=== PATIENT | male | born 2000 | race Asian ===

== ENCOUNTER 2023-11-03 11:11 | Emergency (ER) | payer OTHER, SELFPAY ==
--- NOTE | ~2023-11-03 | CT_ITS ---
EXAMINATION: CT abdomen pelvis w con INDICATION: Abdominal pain TECHNIQUE: Computed tomographic images of the abdomen and pelvis were obtained after the administrati on of 100 cc of Omnipaque 350 intravenous contrast. The dose-length product (DLP) was 605.37 mGy-cm. Automated exposure control and iterative reconstruction technique were employed. COMPARISON: None available FINDINGS: Minimal dependent atelectasis is present in the lung bases. The heart size is normal. There is a small sliding hiatal hernia. The liver is diffusely low in attenuation when compared with the s pleen, consistent with hepatic steatosis. The kidneys are unremarkable. No pathologically enlarged ab dominal or pelvic lymph nodes are identified. No free intraperitoneal gas or evidence of bowel obstru ction. The appendix is normal. There is a circumscribed lobular fat abutting the descending colon wit h mild surrounding inflammatory change. IMPRESSION: 1. Findings consistent with epiploic appendagitis of the descending colon. Reviewed, dictated and finalized at location [facility] [employer]
[2023-11-03 11:15] VITALS: BP 139/79; PULSE 86; RESP 16; TEMP 36.9; O2SAT 100
[2023-11-03 12:37] LABS: Basophils Percent Auto 0.3 % (0.2-1.2); Eosinophils Absolute Auto 0.1 K/mm3 (0-0.3); Hemoglobin 14.9 g/dL (14.0-18.0); Immature Granulocyte Absolute 0.03 K/mm3 (0.00-0.031); Immature Granulocyte Percent A 0.4 % (0-0.5); Lymphocytes Percent Auto 27.8 % (18.3-44.2); Mean Corpuscular HGB Conc 33.1 g/dl (32-36); Mean Corpuscular Hemoglobin 27.7 pg (26-34); Mean Corpuscular Volume 83.6 fl (80-100); Mean Platelet Volume 11.4 fl (7.4-10.4); Monocytes Absolute Auto 0.5 K/mm3 (0.1-0.6); Monocytes Percent Auto 6.1 % (2.6-8.5); Neutrophils Absolute Auto 5.1 K/mm3 (1.3-6.7); Neutrophils Percent Auto 64.4 % (45.5-73.1); Platelet Count Result 202 k/mm3 (150-375); Red Blood Count 5.38 M/mm3 (4.6-6.20); Red Cell Distribution Width 12.6 % (11.5-14.5); White Blood Count 7.9 K/mm3 (4.5-10.0)
[2023-11-03 12:40] LABS: Appearance Urine Clear (Clear); Bilirubin Urine Negative (Negative); Blood Urine Negative (Negative); Color Urine Yellow (Yellow); Glucose Urine UA Negative (Negative); Ketones Urine Trace mg/dL (Negative); Leukocyte Esterase Ur Negative LEU/UL (Negative); Nitrate Urine Negative (Negative); Protein Urine Negative (Negative); Specific Grav Ur 1.025 (1.001-1.035); Urobilinogen Urine 0.2 mg/dL (<2.0)
[2023-11-03 12:42] LABS: Add Urine Microscopic? NO
[2023-11-03 12:48] LABS: Alanine Aminotransferase 33 U/L (6-50); Albumin Level 4.6 g/dL (3.5-5.1); Alkaline Phosphatase 62 U/L (38-126); Anion Gap 10 mmol/L (8-16); Aspartate Amino Transferase 25 U/L (17-59); Bilirubin,Total 0.8 mg/dL (0.2-1.3); Blood Urea Nitrogen 11 mg/dL (9-20); Calcium 9.3 mg/dL (8.4-10.2); Carbon Dioxide 26 mmol/L (22-30); Chloride 104 mmol/L (98-107); Estimated CRCL calculation 109 ml/min; Estimated Glomerular Filt Rate > 60; Glucose 100 mg/dL (65-110); Lipase 29 U/L (23-300); Potassium 3.7 mmol/L (3.4-5.0); Sodium 140 mmol/L (137-145)
--- NOTE | 2023-11-03 15:30 | ED.GENADULT ---
HPI - General Adult General Chief complaint: Abdominal Pain Stated complaint: abd pain Time Seen by Provider: 11/03/23 13:53 History of Present Illness HPI narrative: Armani Babin is a 22 y/o male who presents today with complaints of haivng left lower abdominal pain for 3 days, denies nausea/vomiting/ last BM was yesterday and normal. Denies pain to testicles no dysuria. denies fever/chills Related Data Allergies Allergy/AdvReac Type Severity Reaction Status Date / Time No Known Allergies Allergy Verified 11/03/23 15:39 Review of Systems Review of Systems: CONSTITUTIONAL: Denies fever, chills, or sweats. EYES: Denies visual changes, redness, or discharge. ENT: Denies rhinorrhea, congestion, sore throat, or otalgia. CARDIOVASCULAR: Denies chest pain, palpitations, or edema. RESPIRATORY: Denies cough or dyspnea. GASTROINTESTINAL: Reports left lower abdominal pain, denies nausea, vomiting, or diarrhea. GENITOURINARY: Denies dysuria or hematuria. SKIN: Denies rash or itching. MUSCULOSKELETAL: Denies back pain, joint pain, or myalgia. NEUROLOGIC: Denies headache, numbness, dizziness, or weakness. PSYCHIATRIC: Denies anxiety or depression. Exam Narrative: GENERAL: Well-appearing, well-nourished, and in no acute distress. HEAD: Normocephalic, atraumatic. EYES: PERRLA and EOMI. ENT: Nares clear, no rhinorrhea or epistaxis. Mucous membranes moist. Oropharynx without tonsillar hypertrophy exudate or other lesions. NECK: Supple. No adenopathy or masses. No carotid bruits or JVD CHEST: Clear to auscultation. No respiratory distress. No wheezes rales or rhonchi HEART: Regular rate and rhythm. No murmur heard. Normal peripheral pulses. ABDOMEN: Soft, tender to the left middle and left lower abdomen with palpation , nondistended, normal active bowel sounds. EXTREMITIES: Normal range of motion. No edema. SKIN: Warm, dry, no rash. NEURO: No focal deficits. Alert and oriented x3. PSYCH: Normal mood and affect. Course Vital Signs Vital signs: Vital Signs Temperature 36.9 C 11/03/23 11:15 Pulse Rate 86 11/03/23 11:15 Respiratory Rate 16 11/03/23 11:15 Blood Pressure 139/79 11/03/23 11:15 Pulse Oximetry 100 11/03/23 11:15 Oxygen Delivery Room Air 11/03/23 11:15 Temperature 36.9 C 11/03/23 11:15 Pulse Rate 86 11/03/23 11:15 Respiratory Rate 16 11/03/23 11:15 Blood Pressure 139/79 11/03/23 11:15 Pulse Oximetry 100 11/03/23 11:15 Oxygen Delivery Room Air 11/03/23 11:15 Medical Decision Making MDM Narrative Medical decision making narrative: Patient presents with this left middle / lower abdominal pain that has been present for 3 days He denies nausea/vomting/ diarrhea/ fever/chills No testicular pain/ swelling He denies any other contributing factors he doesn't know of anythng that makes his pain better or worse Normal bowel movements labs are unremarkable CT - showing ?epiploic appendagitis of the descending colon. Talked with Dr. Huitron who confirms this is self limiting treated with anti-inflammatories and a surgery consult is not necessary. Updated pt on findings and plan to start Naproxen BID for 2 weeks Close follow up with PCP Strict return precautions provided. Patient verbalizes understanding and all questions answered. Medical Records Medical records reviewed: Yes I reviewed the external patient's medical records. Vital Signs Vital Signs: Vital Signs Temperature 36.9 C 11/03/23 11:15 Pulse Rate 86 11/03/23 11:15 Respiratory Rate 16 11/03/23 11:15 Blood Pressure 139/79 11/03/23 11:15 Pulse Oximetry 100 11/03/23 11:15 Oxygen Delivery Room Air 11/03/23 11:15 Temperature 36.9 C 11/03/23 11:15 Pulse Rate 86 11/03/23 11:15 Respiratory Rate 16 11/03/23 11:15 Blood Pressure 139/79 11/03/23 11:15 Pulse Oximetry 100 11/03/23 11:15 Oxygen Delivery Room Air 11/03/23 11:15 Vitals reviewed by me. Lab Data
[2023-11-03] MEDS: SODIUM CHLORIDE 0.9% IV 1,000 ML 999 ML IV CONT (15:40)
[2023-11-03] MEDS: ONDANSETRON INJ 4 MG/2 ML VIAL IV PUSH (15:40)
[2023-11-03] MEDS: FAMOTIDINE 20 MG/2 ML VIAL IV PUSH (15:41)
[2023-11-03] MEDS: KETOROLAC 30 MG/ML VIAL (*BKC) IV PUSH (15:41)
== END 2023-11-03 18:09 | disposition home or self-care (01) ==
PROVIDERS: Emergency Medicine; Emergency Provider Nurse Practitioner Family
DX: K63.89 Other specified diseases of intestine (principal)
CPT/HCPCS: 36415; 74177; 80053; 81003; 83690; 85025; 96361; 96374; 96375; 99284; J1885; J2405; J7030; Q9967